=== PATIENT | male | born 1955 | race Caucasian/White ===

== ENCOUNTER 2020-05-13 14:29 | Outpatient (RCR) | payer MEDICARE, SELFPAY ==
[2020-05-13] MEDS: COVID-19 VACC, MRNA(PFIZER)/PF 30 MCG/0.3 ML SYRINGE IM (10:38)
[2020-06-03] MEDS: COVID-19 VACC, MRNA(PFIZER)/PF 30 MCG/0.3 ML SYRINGE IM (10:30)
== END 2020-05-13 23:59 ==
LOC: IMMUN 14:29
PROVIDERS: PCP Internal Medicine; Visit Provider Family Medicine
DX: Z23 Encounter for immunization (principal)
CPT/HCPCS: 0001A; 0002A; 91300

== ENCOUNTER → 2023-04-25 | Outpatient (CLI) | payer MEDICARE, SELFPAY ==
--- NOTE | 2023-04-25 12:52 | CDU_ITS ---
Reason For Study: TIA Rt. Velocities/BP Lt. Velocities/BP Prox CCA 97.1/11.3 cm/sec. Prox CCA 92.7/16.8 cm/sec. Mid CCA 68.5/11.3 cm/sec. Mid CCA 92.7/16.8 cm/sec. Dist CCA 64.1/14.6 cm/sec. Dist CCA 80.6/16.8 cm/sec. Prox ICA 330.7/91.4 cm/sec. Prox ICA 115.6/26.1 cm/sec. Mid ICA 217.5/17.1 cm/sec. Mid ICA 86.4/27.9 cm/sec. Dist ICA 83.9/28.6 cm/sec. Dist ICA 88.8/18.8 cm/sec. Rt. ICA/CCA = 4.83. Lt. ICA/CCA = 1.25. Prox ECA 103.6/10.2 cm/sec. Prox ECA 106/11.4 cm/sec. Rt. Vert. 45.6/9.7 cm/sec. Lt. Vert. 54.4/12.6 cm/sec. Right Extracranial There is homogeneous, smooth atherosclerotic plaque noted in the right common carotid artery. There is heterogeneous, irregular atherosclerotic plaque noted in the right internal carotid artery. There is intimal thickening but no significant atherosclerotic plaque noted in the right external carotid artery. Antegrade flow is noted in the right vertebral artery. Left Extracranial There is homogeneous, smooth atherosclerotic plaque noted in the left common carotid artery. There is heterogeneous, irregular atherosclerotic plaque noted in the left internal carotid artery. There is intimal thickening but no significant atherosclerotic plaque noted in the left external carotid artery. Antegrade flow is noted in the left vertebral artery. Procedure Carotid Duplex [id number]. This is a Carotid Duplex examination using B-mode, color flow and specral Doppler. Exam performed in department. VL/Carotid Duplex Ultrasound Interpretation Summary Severe (>70%) stenosis right extracranial internal carotid. Mild (<50%) stenosis left extracranial internal carotid. Patent and antegrade vertebrals bilaterally. Ordering Physician: Sunni Fernandez Referring Physician: Sunni Fernandez Performed By: Jessi Booker RVT
--- OUTSIDE RECORDS SUMMARY | 2023-04-25 22:09 | XMS RPT_ITS | CCD ---
Author Name Unknown Address [address] [facility] [address] [place] [address] Organization [facility] Care Team Providers Care [employer] Inspector Name Role Phone Veronica Todd MD Primary Care Provider VERONICA TODD Referring Unavailable VERONICA TODD Attending Unavailable VERONICA TODD Primary Care Unavailable Veronica Todd MD Primary Care Provider Medications Current Medications Medication Drug Class(es) Dates Sig (Normalized) Sig (Original) [id number] 200 actuat albuterol 0.09 mg/actuat metered dose inhaler (3 sources) beta2-Adrenergic Agonist Start: 11-09-2020 albuterol sulfate HFA 108 (90 Base) MCG/ACT inhaler 4 puff Completed/Discontinued Medications Medication Drug Class(es) Dates Sig (Normalized) Sig (Original) iopamidol (ISOVUE-370) 76 % injection 75 mL (1 source) Start: 08-09-2020 End: 08-09-2020 iopamidol (ISOVUE-370) 76 % injection 75 mL Problems Active Problems Problem Classification Problem Date Documented Da te Episodic/Chronic Chronic obstructive pulmonary disease and bronchiectasis (4 sources) Mucopurulent chronic bronchitis; Translations: [Mucopurulent chronic bronchitis] Onset: 08-16-2020 08-16-2020 Chronic Diabetes mellitus without complication (4 sources) Type 2 diabetes mellitus without complication; Translations: [Type 2 diabetes mellitus without complications] Onset: 08-16-2020 08-16-2020 Chronic Leukemias (8 sources) Chronic lymphoid leukemia, disease; Translations: [Chronic lymphocytic leukemia of B-cell type not having achieved remission] Onset: 08-16-2020 08-16-2020 Chronic Nonspecific chest pain (5 sources) Chest pain; Translations: [Chest pain, unspecified] Onset: 09-25-2022 09-25-2022 Episodic Other lower respiratory disease (4 sources) Pulmonary granuloma; Translations: [Pulmonary fibrosis, unspecified] Onset: 08-16-2020 08-16-2020 Chronic Substance-related disorders (6 sources) Tobacco dependence syndrome; Translations: [Nicotine dependence, unspecified, uncomplicated] Onset: 08-16-2020 08-16-2020 Chronic Past or Other Problems Problem Classification Problem Date Documented Date Episodic/Chronic Other circulatory disease (4 sources) History of cerebrovascular accident; Translations: [Personal history of transient ischemic attack (TIA), and cerebral infarction without residual deficits] Onset: 08-16-2020 08-16-2020 Episodic Other lower respiratory disease (4 sources) Nodule of lung; Translations: [Solitary pulmonary nodule] Onset: 08-16-2020 08-16-2020 Episodic Results Test Name Value Interpretation Reference Range Facil ity Vital Signs Date Time Vital Sign Value Performing Clinician Faci lity 09-25-2022 13:58-0400 Body height 188 cm Veronica Todd MD Work Phone: [email or web address] 09-25-2022 13:58-0400 Body mass index (BMI) [Ratio] 28.76 kg/m2 Veronica Todd MD Work Phone: [email or web address] 09-25-2022 13:58-0400 Body weight 101.61 kg Veronica Todd MD Work Phone: [email or web address] 11-09-2020 08:15-0400 Heart rate 100 /min Cecile Bermudez MD Work Phone: [employer] Work Phone: 11-09-2020 08:15-0400 Respiratory rate 18 /min Cecile Bermudez MD Work Phone: [employer] Work Phone: 11-09-2020 08:15-0400 SaO2% (BldA) [Mass fraction] 96 % Cecile Bermudez MD Work Phone: [facility] Work Phone: Encounters Encounter Date Encounter Type Care Provider Facility Start: 09-25-2022 End: 09-26-2022 ambulatory VERONICA TODD [facility] Start: 09-25-2022 End: 09-25-2022 Subsequent hospital visit by physician Veronica Todd MD Work Phone: [facility] Non-Invasive Cardiology Procedures Date Procedure Procedure Detail Performing Clinician Start: 11-09-2020 Brncdilat rspse spmt ry pre&post-brncdilat admn Cecile Bermudez MD Work Phone: Plan of Treatment Date Care Activity Detail Author Start: 10-27-2022 Influenza vaccination Influenza Vaccine (#1) [facility] Start: 09-09-2021 COVID-19 Vaccine (4 - Booster) COVID-19 Vaccine (4 - Booster) [facility] Start: 09-09-2021 COVID-19 Vaccine (4 - Mixed Product risk series) COVID-19 Vaccine (4 - Mixed Product risk series) [facility] Start: 02-04-2021 End: 02-04-2021 Patient encounter procedure 02/04/2021 Office Visit Pulmonology Cecile Bermudez MD [address] [place] [id number] [phone] [facility] Start: 10-27-2020 Influenza vaccination Flu vaccine (#1) [facility] Work Phone: Start: 08-16-2020 End: 08-16-2020 Patient encounter procedure 08/16/2020 Office Visit Pulmonology Cecile Bermudez MD [address] [place] [address] [phone] [facility] Start: 2020 COVID-19 Vaccine (3 - Pfizer risk 3-dose series) COVID-19 Vaccine (3 - Pfizer risk 3-dose series) [facility] Work Phone: Start: 08-18-2018 Annual Wellness Visit (AWV) Annual Wellness Visit (AWV) [facility] Work Phone: Start: 12-13-2017 Hemoglobin A1c measurement A1C test (Diabetic or Prediabetic) [facility] Work Phone: Start: 12-13-2017 Lipid panel Lipid screen [facility] Work Phone: Start: 2016 Hepatitis B Vaccines (1 of 3 - Risk 3-dose series) Hepatitis B Vaccines (1 of 3 - Risk 3-dose series) [facility] [employer] Start: 2006 Screening for malignant neoplasm of colon Colon cancer screen colonoscopy [facility] Work Phone: Start: 2006 Shingles Vaccine (1 of 2) Shingles Vaccine (1 of 2) [facility] Work Phone: Start: 2001 Screening for malignant neoplasm of colon Colon cancer screen colonoscopy [facility] Work Phone: Start: 07-02-1975 DTaP/Tdap/Td vaccine (1 - Tdap) DTaP/Tdap/Td vaccine (1 - Tdap) [facility] Work Phone: Start: 07-02-1975 DTaP/Tdap/Td Vaccines (1 - Tdap) DTaP/Tdap/Td Vaccines (1 - Tdap) [facility] Start: 07-02-1975 Hepatitis A Vaccines (1 of 2 - Risk 2-dose series) Hepatitis A Vaccines (1 of 2 - Risk 2-dose series) [facility] Start: 1974 Diabetic microalbuminuria test Diabetic microalbuminuria test [employer] Work Phone: Start: 1974 Hepatitis C screening Hepatitis C Screening [facility] Start: 07-02-1971 HIV screening HIV screen [facility] Work Phone: Start: 1968 Depression Screening Depression Screening [facility] Start: 1966 Diabetic foot examination [facility] Start: 1966 Diabetic retinal exam Diabetic retinal exam [facility] Work Phone: Start: 1966 Glaucoma screening Diabetes: Retinopathy Screening [facility] Start: 1966 Preventive dental service Diabetes: Dental Exam [facility] Start: 1962 Pneumococcal 0-64 years Vaccine (1 of 2 - PPSV23) Pneumococcal 0-64 years Vaccine (1 of 2 - PPSV23) [facility] Work Phone: Start: 1962 Pneumococcal 0-64 years Vaccine (1 of 4 - PCV13) Pneumococcal 0-64 years Vaccine (1 of 4 - PCV13) [employer] Work Phone: Start: 1956 Hemoglobin A1c measurement Diabetes: Hemoglobin A1C [facility] Start: 1956 Hepatitis C screening Hepatitis C screen [facility] Work Phone: Start: 1956 Lipid panel Lipid Panel [facility] Start: 1956 Medicare Annual Wellness (AWV) Medicare Annual Wellness (AWV) [facility] Start: 1956 Screening for malignant neoplasm of colon [facility] [employer] End: 08-09-2020 CT CHEST W CONTRAST CT CHEST W CONTRAST Imaging Routine Once for 1 Occurrences starting 08/09/2020 until 08/09/2020 [facility] Work Phone: Immunizations Immunization Date Immunization Notes Care Provider Fa [facility] 12-22-2021 influenza virus vacc ine, unspecified formulation Veronica Todd MD Work Phone: [facility] [employer] 06-03-2020 Pfizer SARS-CoV-2 Vaccination Veronica Todd MD Work Phone: [facility] [employer] 05-13-2020 Pfizer SARS-CoV-2 Vaccination Veronica Todd MD Work Phone: [facility] [employer] Payers Date Payer Category Payer Medicare MEDICARE MEDICAR E PART A AND B [id number] 2017-Present [phone] [place] [address] [id number] 2015 Medicare [id number] 2015 Medicare MEDICARE MEDICAR E PART A AND B [id number] 2015-Present [address] [place] [address] Medicare [id number] Social History Date Type Detail Facility Start: 07-02-1971 End: 08-16-2020 Tobacco smoking status NHIS Current every day smoker [facility] Start: 07-02-1971 History of tobacco use Cigarette Smo ker [employer] Work Phone: Start: 12-14-2016 End: 02-14-2022 Cigarettes smoked current (pack per day) - Reported [employer] Phone: Start: 12-14-2016 End: 08-16-2020 Tobacco use and exposure Never used [employer] Work Phone: Start: 12-14-2016 End: 02-14-2022 Alcohol intake Current drinker of alcohol (finding) [employer] Work Phone: Start: 12-12-2016 Alcohol Comment occasionally [employer] Work Phone: Start: 1955 Sex Assigned At Not on file [employer] Work Phone: Start: 02-14-2022 Tobacco use panel [employer] Start: 09-15-2022 End: 09-25-2022 Exposure to SARS-CoV-2 (event) Not sure [facility] Evaluation note Note Date & Type Note Facility documented in this encounter [facility] Evaluation note Note Date & Type Note Facility documented in this encounter [facility] Summary Purpose Family History No Family History Records FoundNo Family History Records FoundNo Family History Records Found Advance Directives Documents on File Type Date Recorded 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 ACP-Advance Directive ACP-Power [employer] Latest Code Status on File Code Status Date Activated Date Inactivated Comments Full Code 12/12/2016 8:14 PM 12/14/2016 5:26 PM Reason for Referral Specialty Diagnoses / Procedures Referred By Contac t Referred To Contact Cardiology Diagnoses Chest pain, unspecified Procedures Transthoracic echocardiogram (TTE) complete with contrast, bubble, strain, and 3D PRN CT ECHO TTHRC R-T 2D W/WOM-MODE COMPL SPEC&COLR D CT TTE W OR WO FOL WCON,DOPPLER Veronica Todd MD [address] [place] Referral ID Status Reason Start Date Expiration Date V isits Requested Visits Authorized [id number] Closed Perform Procedure 09/22/2022 03/21/2023 1 1 Additional Source Comments (unrecognized sect ion and content) No Status Records FoundNo Status Records FoundNo Status Records Found INFORMATION SOURCE (unrecogn ized section and content) DATE CREATED AUTHOR AUTHOR'S ORGANIZ ATION 11/16/2020 [email or web address] DATE CREATED AUTHOR AUTHOR'S ORGANIZ ATION 09/27/2022 [facility] [employer] [facility] Reason for Visit (unrecogniz ed section and content) Referral ID Status Reason Start Date Expiration Date V isits Requested Visits Authorized [id number] Closed Perform Procedure 09/22/2022 03/21/2023 1 1 Care Teams (unrecognized sec tion and content) [employer] Inspector Relationship Specialty Start Date End Date Veronica Todd MD [address] [place] PCP - General 11/08/15 FOR RECORDS PERTAINING TO PATIENTS WHO ARE OR HAVE BEEN ENROLLED IN A CHEMICAL DEPENDENCY/SUBSTANCEABUSE PROGRAM, SOME INFORMATION MAY BE OMITTED. This clinical summary was aggregated from multiple sources. Caution should be exercised in using it in the provision of clinical care. This summary normalizes information from multiple sources, and as a consequence, information in this document may materially change the coding, format and clinical context of patient data. In addition, data may be omitted in some cases. CLINICAL DECISIONS SHOULD BE BASED ON THE PRIMARY CLINICAL RECORDS. [facility] [employer] [facility]. provides no warranty or guarantee of the accuracy or completeness of information in this document.
== END | disposition home or self-care (01) ==
PROVIDERS: PCP Nurse Practitioner Family; Referring Provider Nurse Practitioner Family; Visit Provider Nurse Practitioner Family
DX: I73.9 Peripheral vascular disease, unspecified (principal); Z86.73 Personal history of transient ischemic attack (TIA), and cerebral infarction without residual deficits
CPT/HCPCS: 93880

== ENCOUNTER 2023-04-27 13:21 | Outpatient (CLI) | payer MEDICARE, SELFPAY ==
--- NOTE | 2023-04-27 13:25 | CT_ITS ---
STUDY: LOW DOSE CT LUNG CANCER SCREENING REASON FOR EXAM: Male, 67 years old. NICOTINE ABUSE. Patient smokes between 3-4 packs per day for 40 years. RADIATION DOSAGE (If Supplied By Facility): CTDIvol = ( 4.02 ) mGy, DLP = ( 144.96 ) mGycm TECHNIQUE: No contrast was administered. Low dose technique was utilized (average mAS-38 and kVp 120). 1.25 mm axial source images with a slice interval of 1.25-mm were reconstructed in lung windows. 2.5 mm axial source images with a slice interval of 2.5-mm were reconstructed in lung windows. 5.0 mm axial source images with a slice interval of 5.0-mm were reconstructed in soft tissue windows. COMPARISON: None. NODULES: Calcified granuloma in the posterior lateral aspect of the right lower lobe as seen on axial image #107. Emphysema: Hyperinflation. Mild degree of emphysematous changes. Tiny area of increased density in the posterior aspect of the right upper lobe as seen on axial image #50 and coronal image #183. This may represent a focal area of scarring. Endobronchial lesion: None Aorta: Atherosclerotic plaque formation of the aortic arch. CORONARY ARTERIES: Coronary artery calcification is seen. Heart: Unremarkable Pulmonary artery: Unremarkable Mediastinal nodes: Small benign-appearing mediastinal lymph nodes. Calcified right hilar lymph nodes. Other chest and abdominal findings: CT/Low Dose CT Lung Screening IMPRESSION: Lung-RADS category 2 - Continue annual screening with LDCT in 12 months. IMPORTANT NOTES FOR USE: ACR Lung-RADS Version 1.1 Assessment Categories Release Date: 2018 Category: Coded 0-4 bases on nodule(s) with highest degree of suspicion. Negative screen is defined as categories 1 and 2; a positive screen is defined as categories 3 and 4. Category 3 and 4A nodules that are unchanged on interval CT should be coded as category 2, and individuals returned to screening in 12 months. Category 4X: Category 3 or 4 nodules with additional imaging findings that increase the suspicion of lung cancer, such as spiculation, GGN that doubles in size in 1 year, enlarged lymph notes, etc. Category Modifiers: S (significant finding unrelated to lung cancer) Electronically Signed: Brain Corona MD at 15:08 EST ,
--- OUTSIDE RECORDS SUMMARY | 2023-04-27 14:31 | XMS RPT_ITS | CCD ---
Author Name Unknown Address [address] [facility] [address] [place] [address] Organization [facility] Care Team Providers Care Digital Advertising Analyst Name Role Phone Veronica Todd MD Primary Care Provider VERONICA TODD Referring Unavailable VERONICA TODD Attending Unavailable VERONICA TODD Primary Care Unavailable Veronica Todd MD Primary Care Provider Medications Current Medications Medication Drug Class(es) Dates Sig (Normalized) Sig (Original) [id number] 200 actuat albuterol 0.09 mg/actuat metered dose [...] 188 cm Veronica Todd MD Work Phone: [employer] 09-25-2022 13:58-0400 Body mass index (BMI) [Ratio] 28.76 kg/m2 Veroinca Todd MD Work Phone: [employer] 09-25-2022 13:58-0400 Body weight 101.61 kg Veronica Todd MD Work Phone: [employer] 11-09-2020 08:15-0400 Heart rate 100 /min Cecile Bermudez MD Work Phone: [employer] Work Phone: 11-09-2020 08:15-0400 Respiratory rate 18 /min Cecile Bermudez MD Work Phone: [employer] Work Phone: 11-09-2020 08:15-0400 SaO2% (BldA) [Mass fraction] 96 % Cecile Bermudez MD [facility] Phone[facility] Work Phone: Encounters Encounter Date Encounter Type Care Provider Facility Start: 09-25-2022 End: 09-26-2022 ambulatory VERONICA TODD [facility] Start: 09-25-2022 End: 09-25-2022 Subsequent hospital visit by physician Veronica Todd MD Work Phone: [facility] Non-Invasive Cardiology Procedures Date Procedure Procedure Detail Performing Clinician Start: 11-09-2020 Brncdilat rspse spmt ry pre&post-brncdilat admn Cecile Bermudez MD Work Phone: Plan of Treatment Date Care Activity Detail Author Start: 10-27-2022 Influenza vaccination Influenza Vaccine (#1) [facility] Start: 09-09-2021 COVID-19 Vaccine (4 - Booster) COVID-19 Vaccine (4 - Booster) [facility] Start: 09-09-2021 COVID-19 Vaccine (4 - Mixed Product risk series) COVID-19 Vaccine (4 - Mixed Product risk series) [facility] Start: 02-04-2021 End: 02-04-2021 Patient encounter procedure 02/04/2021 Office Visit Pulmonology Cecile Bermudez MD [address] [place] [id number] [phone] [facility] Pulmonology Start: 10-27-2020 Influenza vaccination Flu vaccine (#1) [facility] Work Phone: Start: 08-16-2020 End: 08-16-2020 Patient encounter procedure 08/16/2020 Office Visit Pulmonology Cecile Bermudez MD [address] [place] [address] [phone] [facility] Start: 2020 COVID-19 Vaccine (3 - Pfizer risk 3-dose series) COVID-19 Vaccine (3 - Pfizer risk 3-dose series) [facility] Work Phone: Start: 08-18-2018 Annual Wellness Visit (AWV) Annual Wellness Visit (AWV) [facility] Work Phone: Start: 12-13-2017 Hemoglobin A1c measurement A1C test (Diabetic or Prediabetic) [facility] Work Phone: Start: 12-13-2017 Lipid panel Lipid screen [facility] Work Phone: Start: 2016 Hepatitis B Vaccines (1 of 3 - Risk 3-dose series) Hepatitis B Vaccines (1 of 3 - Risk 3-dose series) [facility] [employer] Start: 2006 Screening for malignant neoplasm of [...] - Tdap) DTaP/Tdap/Td Vaccines (1 - Tdap) [facility] Start: 07-02-1975 Hepatitis A Vaccines (1 of 2 - Risk 2-dose series) Hepatitis A Vaccines (1 of 2 - Risk 2-dose series) [facility] Start: 1974 Diabetic microalbuminuria test Diabetic microalbuminuria test [employer] Work Phone: Start: 1974 Hepatitis C screening Hepatitis C Screening [facility] Start: 07-02-1971 HIV screening HIV screen [facility] Work Phone: Start: 1968 Depression Screening Depression Screening [facility] Start: 1966 Diabetic foot examination [facility] Start: 1966 Diabetic retinal exam Diabetic retinal exam [facility] Work Phone: Start: 1966 Glaucoma screening Diabetes: Retinopathy Screening [facility] Start: 1966 Preventive dental service Diabetes: Dental Exam [facility] Start: 1962 Pneumococcal 0-64 years Vaccine (1 of 2 - PPSV23) Pneumococcal 0-64 years Vaccine (1 of 2 - PPSV23) [facility] Work Phone: Start: 1962 Pneumococcal 0-64 years Vaccine (1 of 4 - PCV13) Pneumococcal 0-64 years Vaccine (1 of 4 - PCV13) [employer] Work Phone: Start: 1956 Hemoglobin A1c measurement Diabetes: Hemoglobin A1C [facility] Start: 1956 Hepatitis C screening Hepatitis C screen [facility] Work Phone: Start: 1956 Lipid panel Lipid Panel [facility] Start: 1956 Medicare Annual Wellness (AWV) Medicare Annual Wellness (AWV) [facility] Start: 1956 Screening for malignant neoplasm of colon [facility] [employer] End: 08-09-2020 CT CHEST W CONTRAST CT CHEST W CONTRAST Imaging Routine Once for 1 Occurrences starting 08/09/2020 until 08/09/2020 [facility] Work Phone: Immunizations Immunization Date Immunization Notes Care Provider Fa [facility] 12-22-2021 influenza virus vacc ine, unspecified formulation Veronica Todd MD Work Phone: [facility] 06-03-2020 Pfizer SARS-CoV-2 Vaccination Veronica Todd MD Work Phone: [facility] 05-13-2020 Pfizer SARS-CoV-2 Vaccination Veronica Todd MD Work Phone: [facility] [employer] Payers Date Payer Category Payer Medicare MEDICARE MEDICAR E PART A AND B [id number] 2017-Present [phone] [place] [address] [id number] 2015 Medicare [id number] 2015 Medicare MEDICARE MEDICAR E PART A AND B [id number] 2015-Present [address] [place] [address] Medicare [id number] Social History Date Type Detail Facility Start: 07-02-1971 End: 08-16-2020 Tobacco smoking status NHIS Current every day smoker [facility] Start: 07-02-1971 History of tobacco use Cigarette Smo ker [employer] Work Phone: Start: 12-14-2016 End: 02-14-2022 Cigarettes smoked current (pack per day) - Reported [facility] Phone: Start: 12-14-2016 End: 08-16-2020 Tobacco use and exposure Never used [employer] Work Phone: Start: 12-14-2016 End: 02-14-2022 Alcohol intake Current drinker of alcohol (finding) [employer] Work Phone: Start: 12-12-2016 Alcohol Comment occasionally [employer] Work Phone: Start: 1955 Sex Assigned At Not on file S Immediately Work Phone: Start: 02-14-2022 Tobacco use panel [employer] Start: 09-15-2022 End: 09-25-2022 Exposure to SARS-CoV-2 (event) Not sure [facility] Evaluation note Note Date & Type Note Facility documented in this encounter [facility] Evaluation note Note Date & Type Note Facility documented in this encounter [facility] Summary Purpose Family History No Family History Records FoundNo Family History Records FoundNo Family History Records Found Advance Directives Documents on File Type Date Recorded 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-[employer]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 Development Consultant Latest Code Status on File Code Status Date Activated Date Inactivated Comments Full Code 12/12/2016 8:14 PM 12/14/2016 5:26 PM Reason for Referral Specialty Diagnoses / Procedures Referred By Contac t Referred To Contact Cardiology Diagnoses Chest pain, unspecified Procedures Transthoracic echocardiogram (TTE) complete with contrast, bubble, strain, and 3D PRN VT ECHO TTHRC R-T 2D W/WOM-MODE COMPL SPEC&COLR D VT TTE W OR WO FOL WCON,DOPPLER Veronica Todd MD [address] [place], [place] Referral ID Status Reason Start Date Expiration Date V isits Requested Visits Authorized [id number] Closed Perform Procedure 09/22/2022 03/21/2023 1 1 Additional Source Comments (unrecognized sect ion and content) No Status Records FoundNo Status Records FoundNo Status Records Found INFORMATION SOURCE (unrecogn ized section and content) DATE CREATED AUTHOR AUTHOR'S ORGANIZ ATION 11/16/2020 [employer] DATE CREATED AUTHOR AUTHOR'S ORGANIZ ATION 09/27/2022 [facility] [facility] Reason for Visit (unrecogniz ed section and content) Referral ID Status Reason Start Date Expiration Date V isits Requested Visits Authorized [id number] Closed Perform Procedure 09/22/2022 03/21/2023 1 1 Care Teams (unrecognized sec tion and content) Digital Advertising Analyst Relationship Specialty Start Date End Date Veronica Todd MD [address] [place], [place] PCP - General 11/08/15 FOR RECORDS [...] BE BASED ON THE PRIMARY CLINICAL RECORDS. [facility] [employer] [facility]. provides no warranty or guarantee of the accuracy or completeness of information in this document.
== END 2023-04-27 23:59 | disposition home or self-care (01) ==
PROVIDERS: PCP Nurse Practitioner Family; Referring Provider Nurse Practitioner Family; Visit Provider Nurse Practitioner Family
DX: F17.210 Nicotine dependence, cigarettes, uncomplicated (principal)
CPT/HCPCS: 71271

== ENCOUNTER → 2023-05-15 | Outpatient (CLI) | payer MEDICARE, SELFPAY ==
[2023-05-15 15:24] LABS: EST Glomerular Filtration Rate 103 mL/min (>60); Est Glom Filt Rate - Afr Amer 125 mL/min (>60)
== END | disposition home or self-care (01) ==
LOC: LAB 13:44
PROVIDERS: PCP Nurse Practitioner Family; Referring Provider Physician Assistant; Visit Provider Physician Assistant
DX: I10 Essential (primary) hypertension (principal); E11.9 Type 2 diabetes mellitus without complications
CPT/HCPCS: 36415; 82565

== ENCOUNTER → 2023-05-24 | Outpatient (CLI) | payer MEDICARE, SELFPAY ==
--- NOTE | 2023-05-24 15:01 | CT_ITS ---
INDICATION: R ICA stenosis and gt;70% by duplex EXAMINATION: CTA HEAD - CTA Head and Neck W/ Contrast Injection (and W/O Contrast Images if performed) TECHNIQUE: [place]/head CT angiogram protocol was performed following IV contrast. 3D reconstructions were reviewed. A radiation dose optimization technique was used for this scan. Pre and postcontrast imaging obtained. IV Contrast dosage and agent: 100 mL Isovue-370 Radiation Dose (provided by facility) CTDIvol (26.82 ) mGy, DLP ( 1591.83) mGy-cm COMPARISON: None. FINDINGS: CTA [place]: PETROUS AND CAVERNOUS CAROTID ARTERIES: Extensive cavernous carotid calcifications bilaterally without filling defects or occlusion. SUPRACLINOID CAROTID ARTERIES: Normal appearance the supraclinoid carotid vessels bilaterally, the visualized ophthalmic arteries have normal appearance. ANTERIOR CEREBRAL AND A- COMM: Normal appearance the proximal and distal segments of the anterior cerebral circulation bilaterally. MIDDLE CEREBRAL ARTERIES: Normal appearance the proximal and distal segments of the middle cerebral circulation bilaterally. Normal appearance of the M4 cortical distribution bilaterally. INTRACRANIAL VERTEBRAL ARTERIES AND BASILAR ARTERY: Normal appearance of the intracranial course of the vertebral arteries bilaterally, normal appearance of basilar artery to the level of the bifurcation. POSTERIOR CEREBRAL ARTERIES: Normal appearance proximal distal segments of posterior cerebral circulation bilaterally. DURAL SINUSES: Normal, no filling defects noted CT HEAD: 1. The cerebral parenchyma, ventricular system and gyral pattern abnormal configuration. Mild involutional change and chronic microvascular deep white matter disease noted. There is an area of remote infarct involving the RIGHT posterior thalamus. Dilated perivascular spaces present in the RIGHT lenticular nucleus. The cerebellum, brainstem, basilar and suprasellar cisterns have normal appearance. No Chiari malformation. 2. Extensive vascular calcifications in the cavernous carotid vessels bilaterally. 3. Normal appearance the orbits and paranasal sinuses. 4. No areas of abnormal intracranial contrast enhancement. CTA Neck: TECHNIQUE: CTA examination of the neck obtained with standard protocol including axial postcontrast imaging with additional planar and three-dimensional reconstructions. Aortic arch: [Normal appearance of the aortic arch and origin the great vessels.] Right carotid system: There is normal appearance of the RIGHT common carotid artery to the level of the bifurcation. Soft and minimally calcified plaque at the RIGHT carotid bulb contributes to a high-grade stenosis estimated at approximately 75 %. Remaining RIGHT ICA has normal appearance the level of the skull base. Normal appearance of the RIGHT ECA. Left carotid system: There is normal appearance of the LEFT common carotid, LEFT internal carotid, and the bifurcation. There is normal appearance of the LEFT external carotid circulation soft and calcified plaque at the LEFT carotid bulb without stenosis, occlusion, or luminal irregularity. Vertebral arteries: There is normal appearance of the vertebral arteries bilaterally without focal stenosis or occlusion. Airway and soft tissues of the neck: There is normal appearance of the musculofascial planes of suprahyoid and infrahyoid neck. Normal appearance of the visualized airway. Normal appearance the visualized thyroid without masses or nodules noted. Cervical spine: There is normal bony alignment, postoperative changes of anterior plate and screw fixation with intervertebral disc spacer at C5-6. No fractures or canal stenosis. No evidence of loosening of hardware. CT/CTA Head AND Neck W/ Contrast IMPRESSION: 1. Extensive vascular calcifications involving the cavernous carotid vessels bilaterally. No evidence however of filling defects occlusion or aneurysmal dilatation involving the intracranial circulation. 2. No evidence of LVO. 3. High-grade stenosis involving the RIGHT carotid bulb estimated at approximately 75%. The remaining RIGHT cervical carotid system has normal appearance. 4. No hemodynamically significant stenosis involving the LEFT cervical carotid. 5. No focal abnormality identified within the cervical course of the vertebral arteries bilaterally. 6. No intracranial mass, hemorrhage, or acute territorial infarct. No areas of abnormal contrast enhancement. 7. Remote lacunar infarct in the RIGHT posterior thalamus, and dilated perivascular spaces in the RIGHT lenticular nucleus. Electronically Signed: Danny Hernandez MD at 1:13 EDT ,
== END | disposition home or self-care (01) ==
LOC: CT 15:00
PROVIDERS: PCP Nurse Practitioner Family; Referring Provider Physician Assistant; Visit Provider Physician Assistant
DX: I65.21 Occlusion and stenosis of right carotid artery (principal)
CPT/HCPCS: 70496; 70498; Q9967

== ENCOUNTER 2023-07-31 09:00 | Outpatient (CLI) | payer MEDICARE, SELFPAY ==
--- NOTE | 2023-08-06 11:55 | EKG12_ITS ---
Test Reason : PREOP Blood Pressure : / mmHG Vent. Rate : 088 BPM Atrial Rate : 088 BPM P-R Int : 158 ms QRS Dur : 092 ms QT Int : 374 ms P-R-T Axes : 056 062 066 degrees QTc Int : 452 ms Normal sinus rhythm Normal ECG Confirmed by Yasmani Avalos ([id number]), film and video editor KAIA BERMUDEZ ([id number]) on 08/06/2023 1:57:11 PM Referred By: HAYDER Confirmed By:Yasmani Avalos
[2023-08-06 12:52] LABS: Hematocrit 41.1 % (40-54); Hemoglobin 13.8 g/dL (13.0-16.5); Mean Corp Hgb Conc 33.6 g/dL (32-36); Mean Corpuscular Hgb 30.1 pg (27.0-32.0); Mean Corpuscular Volume 89.7 fL (80-94); Platelet Count 453 K/mm3 (150-450); RBC Distribution Width CV 12.4 % (11.6-14.6); RBC Distribution Width SD 40.6 fl (35.1-43.9); Red Blood Count 4.58 M/mm3 (4.6-6.2); White Blood Count 15.9 K/mm3 (4.4-11.0)
[2023-08-06 13:25] LABS: Anion Gap 6 (5-15); BUN 11 mg/dL (7-18); BUN/Creat Ratio 14.7 RATIO (10-20); Calcium,Total 9.3 mg/dL (8.5-10.1); Chloride 100 mmol/L (98-107); Creatinine, Serum 0.75 mg/dL (0.70-1.30); EST Glomerular Filtration Rate 111 mL/min (>60); Est Glom Filt Rate - Afr Amer 134 mL/min (>60); Glucose 191 mg/dL (74-106); Potassium 3.8 mmol/L (3.5-5.1); Sodium Level 130 mmol/L (136-145)
[2023-08-06 14:03] LABS: Hemoglobin A1c 7.8 % (3.8-5.6)
== END 2023-07-31 19:00 | disposition home or self-care (01) ==
LOC: SDC 05-15 15:21
PROVIDERS: PCP Nurse Practitioner Family; Referring Provider Surgery Trauma Surgery; Visit Provider Surgery Trauma Surgery
DX: Z01.818 Encounter for other preprocedural examination (principal); Z01.810 Encounter for preprocedural cardiovascular examination; I65.21 Occlusion and stenosis of right carotid artery
CPT/HCPCS: 36415; 80048; 83036; 85027; 93005

== ENCOUNTER 2023-08-28 05:42 | Inpatient (IN) | payer MEDICARE, SELFPAY ==
[2023-08-28] VITALS (32 sets, daily range): BP systolic 98–147; BP diastolic 40–85; PULSE 70–101; RESP 14–23; TEMP 36.2–36.8; O2SAT 92–100; BMI 28.0
[2023-08-28] MEDS: Lactated Ringers 1,000 ML 15 ML IV ×2 (06:18→09:30)
[2023-08-28] MEDS: Cefazolin 2 GM in 0.9% Normal Saline (100mL Bag) 100 ML IV (07:00)
--- NOTE | 2023-08-28 07:10 | PCM.PRE.AN2 ---
ASA Classification* ASA Classification ASA Classification: 3 Assessment & Plan Anesthesia* Anesthesia Assessment Anesthesia Assessment: Discussed sedation and/or anesthesia options, risks, benefits, and alternatives with patient/parents/legal guardian/POA. Questions invited. The patient/parents/legal guardian/POA seems to understand and agrees to proceed with anesthesia plan. Reviewed the physical assessment, medical history, allergy history and patient home medications list prior to surgery/procedure/anesthetic and documented any changes. Performed airway and anesthesia risk assessments. Anesthesia Type Anesthesia Type: General (see written pre anesthesia record for full assessment ) Anesthesia Focused Assessment* Temperature: 97.7 F Pulse Rate: 93 Blood Pressure: 147/68 Respiratory Rate: 18 Pulse Ox: 99 Airway Assessment Mouth opens: >3 cm Mallampati Score: II Focused Labs Anesthesia Preop lab: CBC WBC 15.9 K/mm3 (4.4-11.0) H 08/06/23 12:09 RBC 4.58 M/mm3 (4.6-6.2) L 08/06/23 12:09 Hgb 13.8 g/dL (13.0-16.5) 08/06/23 12:09 Hct 41.1 % (40-54) 08/06/23 12:09 Plt Count 453 K/mm3 (150-450) H 08/06/23 12:09 CHEMISTRY Potassium 3.8 mmol/L (3.5-5.1) 08/06/23 12:09 Sodium 130 mmol/L (136-145) L 08/06/23 12:09 BUN 11 mg/dL (7-18) 08/06/23 12:09 Creatinine 0.75 mg/dL (0.70-1.30) 08/06/23 12:09 Glucose 191 mg/dL (74-106) H 08/06/23 12:09 COAG Pre-Assessment Diagnosis/Proposed Procedure Planned Operative Procedure(s): r carotid stent Anesthesia History 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 When Was Last Pacemaker Check QUESTION #4 FULL TEXT: You/Your Family Experience fever (hyperthermia) with Anesthesia Last Oral Intake Last Oral intake: Last Oral Intake NPO since 20:00 08/28/23 06:07 Meds taken in AM with sips of Yes 08/28/23 06:07 water? 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 professor: PONV - industrial health and safety professor Female HX of Motion Sickness HX of N/V After Surgery Non-Smoker Duration of Surgery greater than 60 minutes Number of Risk Factors PONV Score Height & Weight Height & Weight: Anesthesia: Height & Weight Height 6 ft 08/28/23 06:07 Weight: 94 kg 08/28/23 06:07 Body Mass Index (BMI) 28.0 08/28/23 06:07 Respiratory Assessment Respiratory Assessment - industrial health and safety professor: Respiratory Tract Infection Hx - industrial health and safety professor Hx Respiratory Tract Infection Yes: SLIGHT COLD-SORE THROAT 08/14/23 14:09 , CONGESTION, NO FEVER STOP Sleep Apnea STOP Sleep Apnea - industrial health and safety professor: STOP Sleep Apnea - industrial health and safety professor Hx Hypertension No 08/14/23 14:09 Hx Sleep Apnea Yes: NO LONGER USES CPAP 08/14/23 14:09 CPAP No 08/14/23 14:09 BIPAP No 08/14/23 14:09 Do you snore loudly (louder than talking or can be heard Do you often feel tired/ fatigued/ sleepy during daytime? Has anyone observed you stop breathing during sleep? STOP Results QUESTION #5 FULL TEXT : Do you snore loudly (louder than talking or can be heard through closed doors)? 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 Specify any problems Hx of Preganancy in last 3 Months Nurse Filling Out Transfusion & Questions: Date: Time: Patient unable to answer at this time (ie. confused, unrespo /Reproduction History /Reproductive History - industrial health and safety professor: /Reproductive Hx- industrial health and safety professor Hx Now Gestational Age (in weeks): EDC: Hx Hx Para Hx Section SAB Active Medications Active Medications: Current Medications Generic Name Dose Route Start Last Admin Trade Name Freq PRN Reason Stop Dose Admin Lactated Ringer's 1,000 mls @ 15 mls/hr 08/28/23 06:00 08/28/23 06:18 IV 15 mls/hr .Q48H LAURY Administration Sodium Chloride 1,000 mls @ 1 mls/hr 08/28/23 05:54 IV .Q48H PRN Saline Flush Cefazolin Sodium 2 gm/ Sodium 110 mls @ 150 mls/hr 08/28/23 07:00 Chloride IV 08/28/23 07:43 PREOP ONE PFSH Medical History Wears dentures Wears glasses Cancer Arthritis High cholesterol Excessive bleeding CLL (chronic lymphocytic leukemia) Back pain Injury of back Injury of head and neck TIA (transient ischemic attack) History of hiatal hernia Gastric reflux Smoker CPAP (continuous positive airway pressure) dependence Sleep apnea Shortness of breath on exertion History of edema PVD (peripheral vascular disease) Thrombotic stroke GERD (gastroesophageal reflux disease) Pulmonary granuloma Male hypogonadism COPD (chronic obstructive pulmonary disease) Hyperlipemia Lymphoid leukemia in remission Diabetes Home Medications ?Medication ?Instructions ?Recorded ?Last Taken ?Type albuterol sulfate 90 mcg/actuation 1 puff inhalation ONCE PRN 05/15/23 Unknown History aerosol inhaler (ProAir HFA) shortness of breath or wheezing clopidogrel 75 mg tablet 75 mg PO DAILY BLOOD THINNER 05/15/23 08/27/23 History esomeprazole magnesium 40 mg 40 mg PO DAILY GERD 05/15/23 Unknown History capsule,delayed release glimepiride 2 mg tablet 2 mg PO HS DIABETES 05/15/23 08/27/23 History glimepiride 4 mg tablet 4 mg PO QAM DIABETES 05/15/23 08/27/23 History metformin 1,000 mg tablet 1,000 mg PO BID DIABETES 05/15/23 08/27/23 History itqqi-5f-skr-epa-fish oil 120 1 cap PO DAILY SUPPLEMENT 05/15/23 08/27/23 History mg-180 mg-60 mg-1,200 mg capsuleDR (Fish Oil) pravastatin 80 mg tablet 80 mg PO QHS CHOLESTEROL 05/15/23 08/27/23 History aspirin 81 mg capsule 81 mg PO DAILY SUPPLEMENT 07/31/23 08/27/23 History fenofibrate 160 mg tablet 160 mg PO DAILY CHOLESTEROL 07/31/23 08/27/23 History Allergy/AdvReac Type Severity Reaction Status Date / Time No Known Allergies Allergy Verified 07/31/23 09:05 Family History Other Alzheimer disease Aneurysm Surgical History H/O spinal fusion Hx of tonsillectomy History of appendectomy Social History Smoking Status: Heavy Smoker (>10/day) Review of Systems (Anesthesia) ROS Narrative System reviewed and no additional complaints, except as documented.
[2023-08-28 07:23] LABS: Bedside Glucose 240 mg/dL (74-106)
--- NOTE | 2023-08-28 07:23 | HP.PCM_ITS ---
HPI - General General Date of Admission: 08/28/23 HPI Narrative DOMI SARAH, is a 68 M who presents with right carotid stenosis, asymptomatic. [facility] Medical History Wears dentures Wears glasses Cancer Arthritis High cholesterol Excessive bleeding CLL (chronic lymphocytic leukemia) Back pain Injury of back Injury of head and neck TIA (transient ischemic attack) History of hiatal hernia Gastric reflux Smoker CPAP (continuous positive airway pressure) dependence Sleep apnea Shortness of breath on exertion History of edema PVD (peripheral vascular disease) Thrombotic stroke GERD (gastroesophageal reflux disease) Pulmonary granuloma Male hypogonadism COPD (chronic obstructive pulmonary disease) Hyperlipemia Lymphoid leukemia in remission Diabetes Home Medications ?Medication ?Instructions ?Recorded ?Last Taken ?Type albuterol sulfate 90 mcg/actuation 1 puff inhalation ONCE PRN 05/15/23 Unknown History aerosol inhaler (ProAir HFA) shortness of breath or wheezing clopidogrel 75 mg tablet 75 mg PO DAILY BLOOD THINNER 05/15/23 08/27/23 History esomeprazole magnesium 40 mg 40 mg PO DAILY GERD 05/15/23 Unknown History capsule,delayed release glimepiride 2 mg tablet 2 mg PO HS DIABETES 05/15/23 08/27/23 History glimepiride 4 mg tablet 4 mg PO QAM DIABETES 05/15/23 08/27/23 History metformin 1,000 mg tablet 1,000 mg PO BID DIABETES 05/15/23 08/27/23 History emzxq-[id number]-kax-epa-fish oil 120 1 cap PO DAILY SUPPLEMENT 05/15/23 08/27/23 History mg-180 mg-60 mg-1,[address] jerry (Fish Oil) pravastatin 80 mg tablet 80 mg PO QHS CHOLESTEROL 05/15/23 08/27/23 History aspirin 81 mg capsule 81 mg PO DAILY SUPPLEMENT 07/31/23 08/27/23 History fenofibrate 160 mg tablet 160 mg PO DAILY CHOLESTEROL 07/31/23 08/27/23 History Allergy/AdvReac Type Severity Reaction Status Date / Time No Known Allergies Allergy Verified 07/31/23 09:05 Family History Other Alzheimer disease Aneurysm Surgical History H/O spinal fusion Hx of tonsillectomy History of appendectomy Social History Smoking Status: Heavy Smoker (>10/day) ROS Constitutional Constitutional: Denies chills, fever(s), frequent falls, lethargy or weakness Eyes Eyes: Denies blind spots, change in vision or loss of vision ENT HEENT: Denies bleeding gums, hoarseness or sore throat Cardiovascular Cardiovascular: Denies abdominal pain, bluish discoloration of hand/feet, chest pain with activity, claudication, cold extremities, cyanosis, dyspnea on exertion, erythema on extremities, irregular heart rhythm, leg edema, leg ulcers, numbness in extremities or weakness in extremities Respiratory/Chest Respiratory/Chest: Denies cough, excessive phlegm production, shortness of breath at rest, shortness of breath with exertion or wheezing Gastrointestinal Gastrointestinal: Denies anorexia, change in stool character, constipation, diarrhea, melena or rectal bleeding Genitourinary Genitourinary: Denies dysuria or hematuria Musculoskeletal Musculoskeletal: Denies abnormal gait Integumentary Integumentary: Reports other Details: ; Denies erythema, non-healing lesions or wounds Neurologic Neurologic: Denies abnormal speech, focal weakness, headache(s), loss of vision, numbness, paresthesias or sensory deficit Hematologic/Lymphatic Hematologic/Lymphatic: Denies easy bleeding, easy bruising or lymphadenopathy Vital Signs Vital Signs Vital Signs: 08/28/23 06:07 08/28/23 06:07 08/28/23 07:10 Temperature 97.7 F L 97.7 F L Temperature Source Temporal Pulse Rate 93 93 Respiratory Rate 18 18 Respiratory Pattern Normal Blood Pressure 147/68 H 147/68 H Blood Pressure Mean 94 Blood Pressure Source Monitor Blood Pressure Position Sitting Blood Pressure Location Left Arm Pulse Ox 99 99 Oxygen Delivery Method Room Air Weight Weight: 207 lb 3.752 oz Body Mass Index (BMI) 28.0 Physical Exam Const alert, oriented x3, no apparent distress and healthy appearing General Appearance: cooperative; Negative for combative or lethargic Orientation / Consciousness: awake Exam Limitations: no limitations HEENT Head and Scalp: normocephalic and atraumatic Eyes EOMs intact bilaterally General Eye: normal appearance of both eyes Neck full ROM, no lymphadenopathy, thyroid normal and No no carotid bruits General: trachea midline; Negative for lymphadenopathy or tenderness Thyroid: thyroid normal Lymph Lymphatic: Negative for no lymphadenopathy noted Resp normal respiratory effort, no use of accessory muscles and clear to auscultation bilaterally Effort and Inspection: Negative for labored, stridor or audible wheezes Cardio regular rate and regular rhythm Back/Spine Cervical Spine: cervical ROM normal Extremity full ROM, normal capillary refill and no clubbing, cyanosis or edema Skin no rashes or lesions noted and no wounds Neuro oriented x3, CN's II-XII intact bilaterally, no focal motor deficits and no sensory deficits noted Psych thought process normal, cooperative, affect normal, speech normal and activity/motor behavior normal Assessment & Plan Assessment/Plan (1) Stenosis of right carotid artery: PLAN: -right TCAR
[2023-08-28] MEDS: 0.9% Normal Saline (1000mL) 1,000 ML IV (07:50)
--- NOTE | 2023-08-28 10:39 | OP.PCM_ITS ---
Report of Operation Date of Procedure: 08/28/23 Pre-Operative Diagnosis: right carotid stenosis Post-Operative Diagnosis: same Surgery/Procedure Performed:: right trans carotid artery stenting Surgeon: Eric Gilman Drains: 19 fr yennifer Estimated Blood Loss (mL): 15 Description of Procedure: HPI: Patient is a 68-year-old male with asymptomatic right carotid artery stenosis that is greater than 70% by both duplex and CT angiogram. The lesion is appropriate for stenting and is distal to the bifurcation there is felt to be more appropriate for stenting rather than endarterectomy. Description of procedure: Upon obtaining informed consent and verification correct patient procedure site patient was taken to the [facility] where he was placed under general anesthesia. He is then positioned prepped and draped in usual sterile fashion and timeout was performed. Transverse incision was made 1 fingerbreadth superior to the clavicle and Bovie electrocautery used to dissect down through the subcutaneous tissue to level the platysma. The platysma was divided and further dissection carried down to the sternocleidomastoid. This was freed along its anterior border and self-retaining retractors moved deeper into the wound exposing the carotid sheath. Sharp dissection then used to dissect free the anterior border of the jugular vein was then retracted laterally exposing the common carotid artery. Sharp dissection was dissected free from the vessel proximally and a right angle used to place a vessel loop. A 5-0 Prolene pursestring stitch was then placed at the intended site of access and the patient was then heparinized and allowed to circulate for 3 minutes before and ACT was performed. Further heparin dosing was performed based on ACT results. Next under ultrasound guidance the right common femoral vein was accessed with a micropuncture needle wire and exchanged out for the micropuncture sheath. Through the micropuncture sheath a J-wire was advanced and the aqua puncture sheath exchanged for the silk Road venous return sheath. Next a micropuncture needle and wire were used to access the common carotid artery puncture sheath. Through the micropuncture sheath hand-injection subtraction angiography was performed revealing the carotid bifurcation anatomy. Using the micropuncture wire we navigated into the external carotid artery puncture sheath to 10 cm. Micropuncture wire was then withdrawn and the J-wire for the silk Road flow reversal sheath advanced to the external carotid artery. The micropuncture sheath was then exchanged for the silk [address] flow reversal sheath and secured in position after being advanced to the hub. The flow reversal tubing was then attached functional. The proximal common carotid artery was then occluded with a vessel loop with flow reversal confirmed. Multiple oblique subtraction angiography's were then performed and the carotid lesion marked. Using an 014 wire we are able to navigate the lesion and a dvanced into the distal internal carotid artery. A silk [address] 4.5 x 35 angioplasty balloon was then advanced and the lesion predilated to nominal. The balloon was then withdrawn and it tapered 9 to 7 x 40 en route stent was advanced in position and deployed. Completion angiography revealed brisk contrast transit no extravasation or dissection and satisfactory stent expansion. A second oblique view revealed that there was not satisfactory stent expansion in this view so it was postdilated with a 5 x 25 mm angioplasty balloon with improved stent expansion after post dilation. Completion yi ography confirmed brisk contrast transit with no extravasation or dissection. After sufficient flow reversal time the flow reversal system was then detached and blood returned femoral vein sheath. The femoral vein sheath was then withdrawn and manual pressure held for 5 minutes with satisfactory stasis noted. The carotid sheath was then withdrawn and the pursestring suture secured. Satisfactory hemostasis was noted and the vessel was interrogated with Doppler and found to be patent with appropriate signal. Heparin was then reversed with protamine and a 19 Czech channel YENNIFER placed via separate stab incision. The incision was then closed with 3-0 Vicryl, 4 Monocryl and Dermabond for the skin. At the conclusion of case patient awakened from anesthesia moving all extremities cranial nerves to command. The patient was then taken the recovery room with plans admission to the intensive care unit for hemodynamic and neurologic monitoring. Grafts/Implants Used: 9-7 x40 en route
--- NOTE | 2023-08-28 10:53 | PCM.POST.ANE ---
Anesthesia: Postop Eval I Current Vital Signs Temperature: 97.9 F Pulse Rate: 81 Blood Pressure: 124/47 Respiratory Rate: 14 Pulse Ox: 94 Oxygen Delivery Method: Room Air Assessment Airway patent: Yes Spontaneous unlabored respirations: Yes Mental status: Awake and Calm nausea: No Vomiting: No Anesthesia Complication: No Fluid Hydration Crystalloid volume administer (ml): 2,200 Total IV fluid infused: 2,200 Progress Note Anesthesia document: Postop Eval 1 completed: Yes
[2023-08-28] MEDS: Clopidogrel Bisulfate 75 MG Tablet 150 MG PO (11:38)
[2023-08-28] MEDS: 0.45% Normal Saline 1,000 ML 75 ML IV (12:38)
[2023-08-28] MEDS: Cefazolin 1 GM/50 ML BAG IV ×2 (12:59→22:18)
[2023-08-28] MEDS: Insulin Lispro 100 UNIT/ML INSULN.PEN SC ×3 (13:15→22:18)
[2023-08-28 13:17] LABS: Bedside Glucose 283 mg/dL (74-106)
[2023-08-28] MEDS: Acetaminophen 500 MG Tablet 1000 MG PO ×2 (13:34→22:21)
[2023-08-28] MEDS: metFORMIN HCl 1,000 MG Tablet 1000 MG PO (15:24)
[2023-08-28 15:45] LABS: Bedside Glucose 284 mg/dL (74-106)
--- NOTE | 2023-08-28 16:57 | POSTOPAN2_ITS ---
Anesthesia Postop Eval I Sum Postop Eval Completion status Anesthesia document: Postop Eval 1 completed: Yes Anesthesia Postop Eval I Summary Anesthesia Postop Eval I Summary: Anesthesia Postop Eval I: Assessment Summary Airway patent Yes 08/28/23 11:02 MECHANIC [email or web address] Spontaneous unlabored Yes 08/28/23 11:02 MECHANIC FOREMAN.GDOTT respirations Mental status Awake,Calm 08/28/23 11:02 MECHANIC [email or web address].GDOTT nausea No 08/28/23 11:02 MECHANIC FOREMAN.GDOTT Vomiting No 08/28/23 11:02 MECHANIC FOREMAN.GDOTT Anesthesia Postop Eval I: Fluid Summary Crystalloid volume administer 2,200 08/28/23 11:02 MECHANIC FOREMAN.GDOTT (ml) Colloids volume administered ( ml) Blood Product volume administered (ml) Total IV fluid infused 2,200 08/28/23 11:02 MECHANIC FOREMAN.GDOTT Anesthesia Postop Eval I: Summary Notes Anesthesia Complication No 08/28/23 11:02 MECHANIC [email or web address].GDOTT Anesthesia Complication Comment: Post-operative progress note Anesthesia: Postop Eval II Evaluation Mental status: Awake and Calm Pain Level: 1 nausea: No Vomiting: No Complications Anesthesia Complication: No
--- NOTE | 2023-08-28 16:57 | PCM.POSTANE2 ---
Anesthesia Postop Eval I Sum Postop Eval Completion status Anesthesia document: Postop Eval 1 completed: Yes Anesthesia Postop Eval I Summary Anesthesia Postop Eval I Summary: Anesthesia Postop Eval I: Assessment Summary Airway patent Yes 08/28/23 11:02 SENIOR INTERIOR DESIGNER.[email or web address] Spontaneous unlabored Yes 08/28/23 11:02 SENIOR INTERIOR DESIGNER.GDOTT respirations Mental status Awake,Calm 08/28/23 11:02 SENIOR INTERIOR DESIGNER.GDOTT nausea No 08/28/23 11:02 SENIOR INTERIOR DESIGNER.GDOTT Vomiting No 08/28/23 11:02 SENIOR INTERIOR DESIGNER.GDOTT Anesthesia Postop Eval I: Fluid Summary Crystalloid volume administer 2,200 08/28/23 11:02 SENIOR INTERIOR DESIGNER.GDOTT (ml) Colloids volume administered ( ml) Blood Product volume administered (ml) Total IV fluid infused 2,200 08/28/23 11:02 SENIOR INTERIOR DESIGNER.GDOTT Anesthesia Postop Eval I: Summary Notes Anesthesia Complication No 08/28/23 11:02 SENIOR INTERIOR DESIGNER.GDOTT Anesthesia Complication Comment: Post-operative progress note Anesthesia: Postop Eval II Evaluation Mental status: Awake and Calm Pain Level: 1 nausea: No Vomiting: No Complications Anesthesia Complication: No
[2023-08-28] MEDS: Glimepiride 2 MG Tablet PO (22:18)
[2023-08-28] MEDS: Pravastatin 80 MG Tablet PO (22:21)
[2023-08-28 22:46] LABS: Bedside Glucose 252 mg/dL (74-106)
[2023-08-29] VITALS (12 sets, daily range): BP systolic 95–127; BP diastolic 41–69; PULSE 56–69; RESP 16–23; TEMP 35.8–36.3; O2SAT 93–97; BMI 29.3
[2023-08-29] MEDS: oxyCODONE 5 MG Tablet PO (00:26)
[2023-08-29] MEDS: 0.45% Normal Saline 1,000 ML 75 ML IV (02:27)
[2023-08-29 03:36] LABS: Absolute Lymphocyte Count 6.81 X10^3/uL (0.83-4.51); Absolute Neutrophil Count 8.7 X10^3/uL (2.0-7.7); Basophil# 0.05 X10^3/uL; Basophil% 0.3 % (0-1); Eosinophil# 0.05 X10^3/uL; Eosinophils% 0.3 % (0-5); Hematocrit 33.7 % (40-54); Hemoglobin 11.1 g/dL (13.0-16.5); Lymphocyte # 6.81 X10^3/ul (0.83-4.51); Mean Corp Hgb Conc 32.9 g/dL (32-36); Mean Corpuscular Hgb 29.8 pg (27.0-32.0); Mean Corpuscular Volume 90.6 fL (80-94); Mean Platelet Vol. 9.2 fl (6.2-12.0); Monocyte# 0.98 X10^3/uL; Monocyte% 5.9 % (0-10); NRBC Flagged by Analyzer 0 % (0-5); Neutrophil # 8.65 X10^3/uL (2.7-7.7); Neutrophil % 52.1 % (47-70); POSITIVE DIFFERENTIAL YES; Platelet Count 317 K/mm3 (150-450); RBC Distribution Width CV 12.6 % (11.6-14.6); RBC Distribution Width SD 41.4 fl (35.1-43.9); Red Blood Count 3.72 M/mm3 (4.6-6.2); White Blood Count 16.6 K/mm3 (4.4-11.0)
[2023-08-29 03:41] LABS: Differential Indicated SCAN CRITERIA MET
[2023-08-29 04:48] LABS: Atypical Lymphocyte 1+ %; Differential Comment SCANNED
[2023-08-29] MEDS: Acetaminophen 500 MG Tablet 1000 MG PO (04:58)
[2023-08-29] MEDS: Aspirin 81 MG TAB.CHEW PO (08:36)
[2023-08-29] MEDS: Clopidogrel Bisulfate 75 MG Tablet PO (08:36)
[2023-08-29] MEDS: Glimepiride 4 MG Tablet PO (08:37)
[2023-08-29] MEDS: Pantoprazole Sodium 40 MG Tablet PO (08:37)
[2023-08-29] MEDS: Insulin Lispro 100 UNIT/ML INSULN.PEN SC (08:37)
[2023-08-29] MEDS: Fenofibrate 145 MG Tablet PO (08:38)
[2023-08-29 09:01] LABS: Bedside Glucose 157 mg/dL (74-106)
--- NOTE | 2023-08-29 09:51 | CASEMGMT ---
AMI VASQUEZ Assessment: Face to Face with pt for initial transition planning/care coordination assessment. AMI VASQUEZ introduced self and role at [facility], pt voices understanding and consents to assessment. Pt is A&O x4 and answers all questions appropriately at this time. Pt sitting up in chair in no distress. Care providers, pharmacy, and demographics verified/updated. 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 Pt states I with ADLs and IADLs. Transportation: Pt drives self and denies concerns with transportation. will be picking pt up at time of DC. DME: Pt states checks BS regularly and has glucometer and supplies. Pt states previously had a cpap or bipap machine for at night but no longer using it. HHC/SNF: Denies Hx of. Pt states no concerns with going home at time of dc. Pt states no further concerns/needs. CM to follow. Advised pt to ask CM if any further question/concerns/needs arise, voices understanding. Pt Goal: Home Plan: Home, will follow plan of care. Delaney MUELLER CM
--- NOTE | 2023-08-29 12:41 | PCM.PN.SRG ---
Subjective Subjective Doing well, no complaints. no numbness/weakness/vision loss/speech difficulty. Minimal pain. Tolerating diet, voiding without difficulty. Objective Data Objective Data A&O x 3, NAD RRR Resp non labored CN intact, motor/sensory intact and symmetrical Cn C/D/I, no hematoma, PUMA sero-sang Vital Signs: Vital Signs Temp Pulse Resp BP Pulse Ox O2 Del Method O2 Flow Rate 97.3 F L 58 L 22 H 108/47 L 95 Room Air 2 08/29/23 10:00 08/29/23 08:00 08/29/23 08:00 08/29/23 08:00 08/29/23 08:00 08/29/23 08:00 08/28/23 11:15 Oxygen Flow Rate (L/min) 2 Oxygen Delivery Method Room Air Weight: 216 lb 7.903 oz Body Mass Index (BMI) 29.3 Intake & Output: Intake and Output for Last 24 Hours 08/27/23 08/28/23 08/29/23 23:59 23:59 23:59 Intake Total 1625 / 1925 1300 / 1300 Output Total 150 / 150 1005 / 1005 Balance 1475 / 1775 295 / 295 Lab / Micro Data 08/29/23 03:20 Labs: Laboratory Results - last 24 hr 08/28/23 12:42: POC Glucose 283 H 08/28/23 15:23: POC Glucose 284 H 08/28/23 22:17: POC Glucose 252 H 08/29/23 03:20: WBC 16.6 H, RBC 3.72 L, Hgb 11.1 L, Hct 33.7 L, MCV 90.6, MCH 29.8, MCHC 32.9, RDW Std Deviation 41.4, RDW Coeff of Keiry 12.6, Plt Count 317, MPV 9.2, Immature Gran % (Auto) 0.400, Neut % (Auto) 52.1, Lymph % (Auto) 41.0, [place] % (Auto) 5.9, Eos % (Auto) 0.3, Baso % (Auto) 0.3, Absolute Neuts (auto) 8.7 H, Absolute Lymphs (auto) 6.81 H, Nucleated RBC % 0, Differential Comment SCANNED, Atypical Lymphocytes 1+ 08/29/23 08:36: POC Glucose 157 H Assessment & Plan Assessment/Plan (1) Stenosis of right carotid artery: PLAN: -POD # 1 right TCAR -PUMA removed -progressive ambulation -HLIV, LUIS EDUARDO PUMA -DC planning
--- NOTE | 2023-08-29 12:44 | PCM.DC.SUM ---
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 Diagnosis Discharge Diagnosis (1) Stenosis of right carotid artery: Status: Chronic Code(s): I65.21 - Occlusion and stenosis of right carotid artery Plan: -POD # 1 right TCAR -PUMA removed -progressive ambulation -HLIV, DC PUMA -DC planning Medications at Discharge Home Medications albuterol sulfate 90 mcg/actuation aerosol inhaler (ProAir HFA) 1 puff inhalation ONCE PRN shortness of breath or wheezing 05/15/23 clopidogrel 75 mg tablet 75 mg PO DAILY BLOOD THINNER 05/15/23 esomeprazole magnesium 40 mg capsule,delayed release 40 mg PO DAILY GERD 05/15/23 glimepiride 2 mg tablet 2 mg PO HS DIABETES 05/15/23 glimepiride 4 mg tablet 4 mg PO QAM DIABETES 05/15/23 metformin 1,000 mg tablet 1,000 mg PO BID DIABETES 05/15/23 wcouo-[id number]-fje-epa-fish oil 120 mg-180 mg-60 mg-1,200 mg capsule, DR (Fish Oil) 1 cap PO DAILY SUPPLEMENT 05/15/23 pravastatin 80 mg tablet 80 mg PO QHS CHOLESTEROL 05/15/23 aspirin 81 mg capsule 81 mg PO DAILY SUPPLEMENT 07/31/23 fenofibrate 160 mg tablet 160 mg PO DAILY CHOLESTEROL 07/31/23 oxycodone 5 mg tablet 5 mg PO Q8H PRN pain 2 days #6 tabs 08/29/23 Hospital Course Operations - (right carotid artery stent ) Summary of Care Provided Hospital Course: Mr. Marr presented on 08/28/2023 for elective outpatient carotid artery stenting which he tolerated well. Post operatively he was admitted to the intensive care unit for hemodynamic and neurologic monitoring. Overnight he was voiding without difficulty, tolerating diet, neurologically intact, and hemodynamically stable. On POD # 1 his PUMA had minimal output so it was removed and he continued to be hemodynamically stable. His fluids were stopped, his arterial line removed, he his ambulation was progressed. Repeat assessment revealed that he was prepared for home so he was discharged on 08/29/2023 in stable condition. Physical Exam Const alert, oriented x3, no apparent distress and healthy appearing General Appearance: cooperative; Negative for combative or lethargic Orientation / Consciousness: awake Exam Limitations: no limitations HEENT Head and Scalp: normocephalic and atraumatic Eyes EOMs intact bilaterally General Eye: normal appearance of both eyes Neck full ROM, no lymphadenopathy and thyroid normal General: trachea midline; Negative for lymphadenopathy or tenderness Thyroid: thyroid normal Resp normal respiratory effort and no use of accessory muscles Effort and Inspection: Negative for labored, stridor or audible wheezes Cardio regular rate and regular rhythm Back/Spine Cervical Spine: cervical ROM normal Extremity full ROM, normal capillary refill and no clubbing, cyanosis or edema Skin no rashes or lesions noted and no wounds Neuro oriented x3, CN's II-XII intact bilaterally, no focal motor deficits and no sensory deficits noted Psych thought process normal, cooperative, affect normal, speech normal and activity/motor behavior normal Weight / BMI Weight Weight: 216 lb 7.903 oz Body Mass Index (BMI) 29.3 ABG / Lab / Microbiology Data 08/29/23 03:20 Laboratory: Laboratory Results - last 24 hr 08/28/23 12:42: POC Glucose 283 H 08/28/23 15:23: POC Glucose 284 H 08/28/23 22:17: POC Glucose 252 H 08/29/23 03:20: WBC 16.6 H, RBC 3.72 L, Hgb 11.1 L, Hct 33.7 L, MCV 90.6, MCH 29.8, MCHC 32.9, RDW Std Deviation 41.4, RDW Coeff of Keiry 12.6, Plt Count 317, MPV 9.2, Immature Gran % (Auto) 0.400, Neut % (Auto) 52.1, Lymph % (Auto) 41.0, [place] % (Auto) 5.9, Eos % (Auto) 0.3, Baso % (Auto) 0.3, Absolute Neuts (auto) 8.7 H, Absolute Lymphs (auto) 6.81 H, Nucleated RBC % 0, Differential Comment SCANNED, Atypical Lymphocytes 1+ 08/29/23 08:36: POC Glucose 157 H D/C Instructions Discharge Diet: No restrictions Discharge Activity: - May shower in (days): 1 Lifting Restrictions: do not lift > 20 lbs for 14 days Additional Activity Instructions: do not submerge incision for 14 days Remove Dressing in: 1 day Cleanse incision/area with: Soap & Water Meaningful Use Info Meaningful Use Meaningful Use Diagnoses (Choose all that apply): None applicable Ischemic Stroke Statin Dosing Therapy Reference: STATIN DOSE THERAPY REFERENCE: * Patients > 75 years receive moderate or high dose statin therapy. * Patients 75 years or YOUNGER should receive HIGH intensity statin dose unless contraindicated. You will be required to document reason for non-treatment if statin daily dose does not meet guidelines. HIGH DOSE STATIN THERAPY DAILY Atorvastatin > than or = to 40 mg Rosuvastatin > than or = to 20 mg Amlodipine + Atorvastatin > than or = to 2.5/40 mg Ezetimibe + Simvastatin 10/80 mg Simvastatin 80mg Discharge Plan Admission Admit Date/Time: 08/28/23 05:42 Attending Provider: Eric Gilman Primary Care Provider: Sunni Fernandez Discharge Orders/Prescriptions Prescriptions: New oxycodone 5 mg tablet 5 mg PO Q8H PRN (Reason: pain) 2 Days Qty: 6 0RF Continued metformin 1,000 mg tablet 1,000 mg PO BID albuterol sulfate [ProAir HFA] 90 mcg/actuation HFA aerosol inhaler 1 puff inhalation ONCE PRN (Reason: shortness of breath or wheezing) Rx Instructions: every 4 to 6 hrs glimepiride 4 mg tablet 4 mg PO QAM Rx Instructions: administer with breakfast clopidogrel 75 mg tablet 75 mg PO DAILY esomeprazole magnesium 40 mg capsule,delayed release(DR/EC) 40 mg PO DAILY pravastatin 80 mg tablet 80 mg PO QHS Fish Oil 120 mg-180 mg- 60 mg-1,200 mg capsule,delayed release(DR/EC) 1 cap PO DAILY glimepiride 2 mg tablet 2 mg PO HS fenofibrate 160 mg tablet 160 mg PO DAILY aspirin 81 mg capsule 81 mg PO DAILY Referrals / Follow Up: Sunni Fernandez, DECONTAMINATION TECHNICIAN-C [Primary Care Provider] - Disposition Disposition (needs filled in before D/C Order can be placed): Home, Self Care
== END 2023-08-29 13:20 | disposition home or self-care (01) | DRG 35 ==
LOC: ACINP 08:05 → ICU 10:43
PROVIDERS: Admitting Provider Surgery Trauma Surgery; PCP Nurse Practitioner Family; Referring Provider Surgery Trauma Surgery; Visit Provider Surgery Trauma Surgery
PROC: 037H34Z Dilation of Right Common Carotid Artery with Drug-eluting Intraluminal Device, Percutaneous Approach (ICD-10-PCS; CPT 37236; principal; 2023-08-28 07:00)
DX: I65.21 Occlusion and stenosis of right carotid artery (principal); C91.11 Chronic lymphocytic leukemia of B-cell type in remission; E11.9 Type 2 diabetes mellitus without complications; J44.9 Chronic obstructive pulmonary disease, unspecified; E78.00 Pure hypercholesterolemia, unspecified; F17.200 Nicotine dependence, unspecified, uncomplicated; Z79.84 Long term (current) use of oral hypoglycemic drugs; Z86.73 Personal history of transient ischemic attack (TIA), and cerebral infarction without residual deficits
CPT/HCPCS: 37215; 76937; 82962; 85025; 94668; 99252; A4648; C1725; C1769; C1876; C1884; C1894; J7030; J7120; G0463; J2405

== ENCOUNTER → 2023-09-20 | Outpatient (CLI) | payer MEDICARE, SELFPAY ==
--- NOTE | 2023-09-20 14:06 | CDU_ITS ---
Reason For Study: S/P Rt TCAR Rt. Velocities/BP Lt. Velocities/BP Prox CCA 119.9/12.3 cm/sec. Prox CCA 136.3/17.5 cm/sec. Mid CCA 85.4/14.2 cm/sec. Mid CCA 105.2/15.7 cm/sec. Dist CCA 87.9/16.7 cm/sec. Dist CCA 86.9/19.4 cm/sec. Prox ICA Stent noted Prox ICA 108.9/24.8 cm/sec. Prox Stent - 67.0/14.2 cm/s Mid ICA 110.7/24.8 cm/sec. Mid Stent - 85.4/21.6 cm/s Dist ICA 86.5/28.9 cm/sec. Dist Stent - 94.0/21.6 cm/s. Lt. ICA/CCA = 1.1. Mid ICA 114.3/26.7 cm/sec. Prox ECA 145.4/10.2 cm/sec. Dist ICA 96.1/26.7 cm/sec. Lt. Vert. 62.0/11.0 cm/sec. Rt. ICA/CCA = 1.3. Prox ECA 159.4/10.1 cm/sec. Rt. Vert. 71.2/14.5 cm/sec. Right Extracranial There is homogeneous, smooth atherosclerotic plaque noted in the right common carotid artery. There is intimal thickening but no significant atherosclerotic plaque noted in the right internal carotid artery. Stent noted from Distal CCA to Mid ICA. There is intimal thickening but no significant atherosclerotic plaque noted in the right external carotid artery. Antegrade flow is noted in the right vertebral artery. Left Extracranial There is homogeneous, smooth atherosclerotic plaque noted in the left common carotid artery. There is heterogeneous, irregular atherosclerotic plaque noted in the left internal carotid artery. There is homogeneous, smooth atherosclerotic plaque noted in the left external carotid artery. Antegrade flow is noted in the left vertebral artery. Procedure Carotid Duplex [id number]. This is a Carotid Duplex examination using B-mode, color flow and specral Doppler. The exam was diagnostic. Exam performed in department. VL/Carotid Duplex Ultrasound Interpretation Summary Mild (<50%) stenosis right extracranial internal carotid. Mild (<50%) stenosis left extracranial internal carotid. Patent and antegrade vertebrals bilaterally. Ordering Physician: Cherri Cox Referring Physician: Sunni Fernandez Performed By: Torsten Walker RVT
== END | disposition home or self-care (01) ==
LOC: CVS 14:05
PROVIDERS: PCP Nurse Practitioner Family; Referring Provider Physician Assistant; Visit Provider Physician Assistant
DX: Z48.812 Encounter for surgical aftercare following surgery on the circulatory system (principal); I65.21 Occlusion and stenosis of right carotid artery
CPT/HCPCS: 93880

== ENCOUNTER → 2023-11-09 | Outpatient (CLI) | payer MEDICARE, SELFPAY ==
[2023-11-09 12:49] LABS: AST(SGOT) 11 U/L (15-37); Alanine Aminotransfer ALT/SGPT 23 U/L (16-61); Albumin, Serum 3.8 g/dL (3.2-5.0); Alkaline Phosphatase 66 U/L (45-117); Bilirubin, Direct 0.07 mg/dL (0.00-0.30); Cholesterol 147 mg/dL (200); Globulin 2.8 g/dL (2.2-4.2); High Density Lipoprotein 36 mg/dL; Protein, Total 6.6 g/dL (6.4-8.2); Triglycerides 95 mg/dL; Very Low Density Lipoprotein 19 mg/dL (5-40)
== END | disposition home or self-care (01) ==
LOC: LAB 11:10
PROVIDERS: PCP Nurse Practitioner Family; Referring Provider Internal Medicine Cardiovascular Disease; Visit Provider Internal Medicine Cardiovascular Disease
DX: I65.21 Occlusion and stenosis of right carotid artery (principal); E78.5 Hyperlipidemia, unspecified
CPT/HCPCS: 36415; 80061; 80076

== ENCOUNTER → 2023-12-05 | Outpatient (CLI) | payer MEDICARE, SELFPAY ==
--- NOTE | 2023-12-06 09:01 | STRESSREP ---
Stress Test Report Exercise stress test. 68-year-old man with a history of chest pain and abnormal calcium scoring Stress protocol: Resting EKG demonstrates sinus tachycardia with a rate of 103 bpm resting blood pressure is 148/82 mmHg. The patient exercised according to the regular [facility] protocol for a total duration of 4 minutes attaining a maximum heart rate of 137 bpm which was 89% of maximum predicted heart rate; the maximum workload was 6.9 metabolic equivalents. At rest there were no ST or T wave changes noted to suggest ischemia and at peak exercise upsloping ST changes only were noted which did not meet the criteria for ischemia. No clinical angina was noted the test was terminated due to the target heart rate being achieved/fatigue. The peak blood pressure was 180/76 mmHg. Rate-pressure product was 20,300. Conclusion: Exercise stress test with no EKG criteria for ischemia at a moderate workload Mild to moderate functional impairment
== END | disposition home or self-care (01) ==
LOC: CVS 11:04
PROVIDERS: PCP Nurse Practitioner Family; Referring Provider Internal Medicine Cardiovascular Disease; Visit Provider Internal Medicine Cardiovascular Disease
DX: R07.9 Chest pain, unspecified (principal)
CPT/HCPCS: 93017

== ENCOUNTER → 2024-02-26 | Outpatient (CLI) | payer MEDICARE, SELFPAY ==
--- NOTE | 2024-02-26 10:57 | CDU_ITS ---
Reason For Study: S/P Rt TCAR Rt. Velocities/BP Lt. Velocities/BP Prox CCA 57/7.8 cm/sec. Prox CCA 137.5/11.5 cm/sec. Mid CCA 61.7/9.7 cm/sec. Mid CCA 84.6/15.2 cm/sec. Distal CCA, Prox stent, 67.4/12.6 Dist CCA 86.4/13.3 cm/sec. cm/sec. Prox ICA 90/13.3 cm/sec. Bulb, Mid stent, 93.7/13.3 cm/sec. Mid ICA 88.2/20.6 cm/sec. Prox ICA, Distal stent, 132.1/24.3 Dist ICA 88.2/18.8 cm/sec. cm/sec. Lt. ICA/CCA = 1.06. Mid ICA 94.9/18.8 cm/sec. Prox ECA 115.6/7.9 cm/sec. Dist ICA 86.3/16.3 cm/sec. Lt. Vert. 65.2/8 cm/sec. Rt. ICA/CCA = 2.14. Prox ECA 137.5/6 cm/sec. Rt. Vert. 69.1/10.2 cm/sec. Right Extracranial There is homogeneous, smooth atherosclerotic plaque noted in the right common carotid artery. There is heterogeneous, irregular atherosclerotic plaque noted in the right internal carotid artery. Stent noted in the right distal CCA to prox ICA. There is intimal thickening but no significant atherosclerotic plaque noted in the right external carotid artery. Antegrade flow is noted in the right vertebral artery. Left Extracranial There is homogeneous, smooth atherosclerotic plaque noted in the left common carotid artery. There is heterogeneous, irregular atherosclerotic plaque noted in the left internal carotid artery. There is intimal thickening but no significant atherosclerotic plaque noted in the left external carotid artery. Antegrade flow is noted in the left vertebral artery. Procedure Carotid Duplex 30231. This is a Carotid Duplex examination using B-mode, color flow and specral Doppler. Exam performed in department. VL/Carotid Duplex Ultrasound Interpretation Summary Moderate (<70%) stenosis right extracranial internal carotid artery stent. Mild (<50%) stenosis left extracranial internal carotid. Patent and antegrade vertebrals bilaterally. Ordering Physician: Cherri Cox Referring Physician: Sunni Fernandez Performed By: Jessi Booker RVT
== END | disposition home or self-care (01) ==
PROVIDERS: PCP Nurse Practitioner Family; Referring Provider Physician Assistant; Visit Provider Physician Assistant
DX: I65.21 Occlusion and stenosis of right carotid artery (principal); Z48.812 Encounter for surgical aftercare following surgery on the circulatory system
CPT/HCPCS: 93880

== ENCOUNTER → 2024-08-28 | Outpatient (CLI) | payer MEDICARE, SELFPAY | END | disposition home or self-care (01) | PROVIDERS: PCP Nurse Practitioner Family; Referring Provider Physician Assistant; Visit Provider Physician Assistant | DX: Z48.812 Encounter for surgical aftercare following surgery on the circulatory system (principal); I65.21 Occlusion and stenosis of right carotid artery | CPT/HCPCS: 93880 ==

== ENCOUNTER → 2024-11-10 | Outpatient (CLI) | payer MEDICARE, SELFPAY ==
[2024-11-10 16:06] LABS: Potassium 4.6 mmol/L (3.3-5.1)
== END | disposition home or self-care (01) ==
LOC: MTLAB 10:50
PROVIDERS: PCP Nurse Practitioner Family; Referring Provider Nurse Practitioner Family; Visit Provider Nurse Practitioner Family
DX: E87.5 Hyperkalemia (principal)
CPT/HCPCS: 36415; 84132